=== PATIENT | male | born 1950 | race Caucasian/White ===

== ENCOUNTER → 2018-09-12 07:37 | Emergency (ER) | payer OTHER ==
[~2018-09-12 07:37] MED LIST: Furosemide IV* 10 MG/ML 10 ML VIAL (100 MG) IV ONE; Furosemide IV* 10 MG/ML VIAL (40 MG) IV ONE; LORazepam INJ* 2 MG/ML 1 ML VIAL IV PUSH ONE; Nitroglycerin TAB 0.4 MG* 0.4 MG TAB SL ONE
[2018-09-12 08:10] LABS: ABS Basophils 0 10^3/ul (0-0.2); ABS Eosinophils 0.2 10^3/ul (0-0.6); ABS Lymphocytes 1.7 10^3/ul (1.0-4.8); ABS Monocytes 0.6 10^3/ul (0-0.8); ABS Neutrophils 4.7 10^3/ul (1.5-7.7); ABS Nucleated RBC 0 10^3/ul; Eosinophil % 2.4 %; Hematocrit 49 % (42-52); Hemoglobin 16.4 g/dl (14.0-18.0); Lymphocyte % 23.3 %; Mean Corpuscular HGB Conc 34 g/dl (31-36); Mean Corpuscular Hemoglobin 30 pg (27-31); Mean Corpuscular Volume 88 fL (80-94); Nucleated Red Blood Cells % 0.1; Platelet Count 178 10^3/ul (150-450); Red Cell Distribution Width 15 % (10.5-15); White Blood Count 7.2 10^3/ul (3.5-10.8)
[2018-09-12 08:29] LABS: EGFR Non-African American 58.1 (>60)
--- NOTE | 2018-09-12 08:43 | ED ---
Shortness of Breath - HPI Summary HPI Summary: Patient is a 68yo M with a hx of bypass, CHF and anxiety presenting to the ED with anxiety over his recent SOB when lying flat. He is tearful on arrival and states he is concerned with sepsis. Currently does not take medications for anxiety because mother of "tranquilizer overdose." States he has not slept in 3 weeks d/t the anxiety over his SOB. PCP is the [facility]. Denies any dizziness, chest pain, chest pain with cough. Denies recent illness. Denies any fevers, sweats, chills. History of 2 bypass surgeries 2013 from [facility] in [facility]. PCP is Dr. Blas to the [facility]. He states he is allergic to several medications and currently is only taking pravastatin. Prior to 3 weeks ago, he states he has been feeling well. - History of Current Complaint Chief Complaint: EDGeneral Time Seen by Provider: 09/12/18 07:47 Hx Obtained From: Patient Onset/Duration: Sudden Onset Timing: Constant Current Severity: Severe Dyspnea At: Rest Aggrevating Factors: Recumbent Position, Other - lying flat Alleviating Factors: Upright Position Associated Signs & Symptoms: Negative - Risk Factors Cardiac: CHF - And 2 bypass surgeries. - Allergy/Home Medications Allergies/Adverse Reactions: Allergies Allergy/AdvReac Type Severity Reaction Status Date / Time amlodipine Allergy Unknown Verified 09/12/18 10:13 Reaction Details Beta-Blockers Allergy Unknown Verified 09/12/18 10:13 (Beta-Adrenergic Bloc Reaction Details codeine Allergy Nausea And Verified 09/12/18 10:13 Vomiting erythromycin base Allergy Unknown Verified 09/12/18 10:13 Reaction Details spironolactone Allergy Nausea And Verified 09/12/18 10:13 Vomiting Home Medications: Home Medications Aspirin TAB* [Aspirin 325 MG TAB*] 325 mg PO DAILY WITH MEAL 09/12/18 [History Confirmed 09/12/18] Pravastatin (NF) [Pravachol (NF)] 10 mg PO 1700 09/12/18 [History Confirmed ] PMH/Surg Hx/FS Hx/Imm Hx Previously Healthy: Yes Psychiatric History: Denies: Hx Eating Disorder, Hx of Violent Episodes Against Others - Surgical History Surgery Procedure, Year, and Place: mitral valve replacement - Immunization History Hx Pertussis Vaccination: No Immunizations Up to Date: Yes Infectious Disease History: No Infectious Disease History: Denies: Traveled Outside the [place] in Last 30 Days - Social History Occupation: Unemployed Lives: Alone Alcohol Use: None Hx Substance Use: Yes Substance Use Type: Reports: Marijuana Hx Tobacco Use: No Smoking Status (MU): Never Smoked Tobacco Review of Systems Negative: Fever, Chills, Fatigue, Skin Diaphoresis Negative: Palpitations, Chest Pain Positive: Shortness Of Breath - worse with lying flat. Negative: Cough Negative: Abdominal Pain, Vomiting, Diarrhea, Nausea Genitourinary: Negative Positive: no symptoms reported, see HPI Negative: Arthralgia, Myalgia Skin: Negative All Other Systems Reviewed And Are Negative: Yes Physical Exam Triage Information Reviewed: Yes Vital Signs On Initial Exam: Initial Vitals Temp Pulse Resp BP Pulse Ox 97.4 F 104 18 172/105 98 09/12/18 07:38 09/12/18 07:38 09/12/18 07:38 09/12/18 07:38 09/12/18 07:38 Vital Signs Reviewed: Yes Appearance: Positive: Well-Appearing, Well-Nourished Skin: Positive: Skin Color Reflects Adequate Perfusion Neck: Positive: Supple, No Lymphadenopathy Respiratory/Lung Sounds: Positive: Clear to Auscultation, Breath Sounds Present Cardiovascular: Positive: Normal, Pulses are Symmetrical in both Upper and Lower Extremities, Tachycardia. Negative: Leg Edema Left, Leg Edema Right Musculoskeletal: Positive: Strength/ROM Intact Neurological: Positive: Speech Normal Psychiatric: Positive: Normal, Affect/Mood Appropriate AVPU Assessment: Alert Diagnostics - Vital Signs Vital Signs Temp Pulse Resp BP Pulse Ox 09/12/18 08:36 18 09/12/18 07:38 97.4 F 104 18 172/105 98 - Laboratory Lab Results: Lab Results 09/12/18 09/12/18 09/12/18 Range/Units 08:01 08:01 08:01 WBC 7.2 (3.5-10.8) 10^3/ul RBC 5.50 H (4.00-5.40) 10^6/ul Hgb 16.4 (14.0-18.0) g/dl Hct 49 (42-52) % MCV 88 (80-94) fL MCH 30 (27-31) pg MCHC 34 (31-36) g/dl RDW 15 (10.5-15) % Plt Count 178 (150-450) 10^3/ul MPV 9.0 (7.4-10.4) fL Neut % (Auto) 65.7 % Lymph % (Auto) 23.3 % [place] % (Auto) 8.1 % Eos % (Auto) 2.4 % Baso % (Auto) 0.5 % Absolute Neuts (auto) 4.7 (1.5-7.7) 10^3/ul Absolute Lymphs (auto) 1.7 (1.0-4.8) 10^3/ul Absolute Monos (auto) 0.6 (0-0.8) 10^3/ul Absolute Eos (auto) 0.2 (0-0.6) 10^3/ul Absolute Basos (auto) 0 (0-0.2) 10^3/ul Absolute Nucleated RBC 0 10^3/ul Nucleated RBC % 0.1 Sodium 141 (135-145) mmol/L Potassium 4.1 (3.5-5.0) mmol/L Chloride 107 (101-111) mmol/L Carbon Dioxide 25 (22-32) mmol/L Anion Gap 9 (2-11) mmol/L BUN 26 H (6-24) mg/dL Creatinine 1.24 H (0.67-1.17) mg/dL Est GFR ( Amer) 70.4 (>60) Est GFR (Non-Af Amer) 58.1 (>60) BUN/Creatinine Ratio 21.0 H (8-20) Glucose 139 H (70-100) mg/dL Lactic Acid 1.4 (0.5-2.0) mmol/L Calcium 9.7 (8.6-10.3) mg/dL Total Bilirubin 4.20 H (0.2-1.0) mg/dL AST 22 (13-39) U/L ALT 24 (7-52) U/L Alkaline Phosphatase 101 (34-104) U/L CK-MB (CK-2) 3.6 (0.6-6.3) ng/mL C-Reactive Protein 1.88 (<8.01) mg/L Total Protein 6.9 (6.4-8.9) g/dL Albumin 4.7 (3.2-5.2) g/dL Globulin 2.2 (2-4) g/dL Albumin/Globulin Ratio 2.1 (1-3) Influenza A (Rapid) (Negative) Influenza B (Rapid) (Negative) 09/12/18 Range/Units 08:22 WBC (3.5-10.8) 10^3/ul RBC (4.00-5.40) 10^6/ul Hgb (14.0-18.0) g/dl Hct (42-52) % MCV (80-94) fL MCH (27-31) pg MCHC (31-36) g/dl RDW (10.5-15) % Plt Count (150-450) 10^3/ul MPV (7.4-10.4) fL Neut % (Auto) % Lymph % (Auto) % [place] % (Auto) % Eos % (Auto) % Baso % (Auto) % Absolute Neuts (auto) (1.5-7.7) 10^3/ul Absolute Lymphs (auto) (1.0-4.8) 10^3/ul Absolute Monos (auto) (0-0.8) 10^3/ul Absolute Eos (auto) (0-0.6) 10^3/ul Absolute Basos (auto) (0-0.2) 10^3/ul Absolute Nucleated RBC 10^3/ul Nucleated RBC % Sodium (135-145) mmol/L Potassium (3.5-5.0) mmol/L Chloride (101-111) mmol/L Carbon Dioxide (22-32) mmol/L Anion Gap (2-11) mmol/L BUN (6-24) mg/dL Creatinine (0.67-1.17) mg/dL Est GFR ( Amer) (>60) Est GFR (Non-Af Amer) (>60) BUN/Creatinine Ratio (8-20) Glucose (70-100) mg/dL Lactic Acid (0.5-2.0) mmol/L Calcium (8.6-10.3) mg/dL Total Bilirubin (0.2-1.0) mg/dL AST (13-39) U/L ALT (7-52) U/L Alkaline Phosphatase (34-104) U/L CK-MB (CK-2) (0.6-6.3) ng/mL C-Reactive Protein (<8.01) mg/L Total Protein (6.4-8.9) g/dL Albumin (3.2-5.2) g/dL Globulin (2-4) g/dL Albumin/Globulin Ratio (1-3) Influenza A (Rapid) Negative (Negative) Influenza B (Rapid) Negative (Negative) Result Diagrams: 09/12/18 08:01 09/12/18 08:01 Lab Statement: Any lab studies that have been ordered have been reviewed, and results considered in the medical decision making process. Course/Dx - Course Course Of Treatment: Patient is very tearful on exam. BP 172/105. O2 97%. he is unable to breathe when lying flat and or in a recumbent to flat position. He states he has a history of CHF, but takes no medications for this. 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 He also states lisinopril get some palpitations. For this reason he remains only on his pravastatin at this time. He is seen by Dr. Blas at the [place] [facility]. History of 2 bypass surgeries in 2012 in [facility]. BNP is 1026. Nitro .4mg sublingual given and 40mg lasix. Will continue to assess and admission is recommended. Discussed case with Dr. Dunne at 9:40 AM. - Diagnoses Differential Diagnosis/HQI/PQRI: Positive: CHF Provider Diagnoses: CHF exacerbation, Hypertension - Physician Notifications Discussed Care of Patient With: Rasheed Dunne - Will see patient in the ED Time Discussed With Above Provider: 09:40 Instructed by Provider To: Admit As Inpatient Discharge - Sign-Out/Discharge Documenting (check all that apply): Patient Departure - Discharge Plan Condition: Fair Disposition: ADMITTED TO [facility] Referrals: Roby Blas MD [Primary Care Provider] - - Billing Disposition and Condition Condition: FAIR Disposition: Admitted to [facility]
[2018-09-12 10:34] LABS: Urine Appearance Clear; Urine Blood Negative (Negative); Urine Color Yellow; Urine Ketones Negative (Negative); Urine Protein Negative (Negative); Urine Specific Gravity 1.006 (1.010-1.030); Urine Urobilinogen Negative (Negative)
[2018-09-12 12:47] VITALS: BP 146/82
--- NOTE | 2018-09-12 14:07 | ECHO ---
Patient: NELL BANDA [facility] Rec#: [id number] : 1950 Date: 09/12/2018 Age: 68y Height: 191 cm / 75.2 in Weight: 100 kg / 220.4 lbs Sex: M BSA: 2.29 Room#: [facility] Admit Date#: 09/12/2018 Type: Inpatient Referring: Rudi Dunne MD Reading: Keyur Roche MD Transfer Specialist: Yovana Ramos RDCS CC: Roby Blas MD Transthoracic Echocardiogram Indication: Congestive heart failure BP: 134/70 HR: 89 Rhythm: NSR with PVCs Findings History: S/P AVR Trifecta valve, s/p CABG, HTN, HLD. Technical Comments: The study quality is fair. Completed at 1220. Left Ventricle: The left ventricular chamber size is moderately dilated. Mild concentric left ventricular hypertrophy is observed. There is moderately decreased left ventricular systolic function. The estimated ejection fraction is 25-30%. Post surgical hypokinesis of the interventricular septum is observed consistent with coronary artery bypass. Abnormal left ventricular diastolic function is observed. The left ventricular diastolic filling pattern is restrictive. The basal anteroseptal, basal inferolateral, mid anteroseptal, mid anterior, apical septal, apical anterior, and apical inferior wall segments are hypokinetic (score 2). The basal inferior, basal inferoseptal, mid inferior, and mid inferoseptal wall segments are akinetic (score 3). Overall wallmotion score index is 1.94 Left Atrium: The left atrium is moderate to severely dilated. Right Ventricle: Moderator Band present. The right ventricle is mildly dilated. The right ventricular global systolic function is moderately reduced. Right Atrium: The right atrium is moderate to severely dilated. Aortic Valve: There is mild to moderate aortic regurgitation. There is mild aortic stenosis. The mean gradient of the aortic valve is 23 mmHg. The peak instantaneous gradient of the aortic valve is 38 mmHg. The aortic valve area, by peak velocities, is calculated at 1.5 cm2. The aortic valve area, by VTI's, is calculated at 1.4 cm2. The measured aortic regurgitation pressure half-time is 320 msec. A bio-prosthetic pericardial aortic valve is present. The prosthetic aortic valve leaflets are thickened. There is abnormal regurgitation of the bio-prosthetic aortic valve. The peak velocities and mean gradients are mildly elevated raising the possibility of prosthetic valve stenosis. Mitral Valve: There is mitral annular calcification. The mitral valve leaflets are mildly thickened. There is mild mitral regurgitation. There is no evidence of mitral stenosis. Tricuspid Valve: The tricuspid valve leaflets are normal. There is mild tricuspid regurgitation. The right ventricular systolic pressure is estimated at 37 mmHg. There is evidence of mild pulmonary hypertension. There is no tricuspid stenosis. Pulmonic Valve: The pulmonic valve appears normal. Pericardium: There is no significant pericardial effusion. A pericardial fat pad is visualized. Aorta: There is mild dilatation of the ascending aorta. There is no dilatation of the aortic arch. The aortic root is normal in size. Pulmonary Artery: The main pulmonary artery appears normal. Venous: The inferior vena cava is dilated. There is a greater than 50% respiratory change in the inferior vena cava dimension. Summary: There was not any prior study for comparison. Conclusions Mild concentric left ventricular hypertrophy is observed. There is moderately decreased left ventricular systolic function. The estimated ejection fraction is 25-30%. Post surgical hypokinesis of the interventricular septum is observed consistent with coronary artery The left ventricular diastolic filling pattern is restrictive. The right ventricle is mildly dilated. The right ventricular global systolic function is moderately reduced. The left atrium is moderate to severely dilated. The right atrium is moderate to severely dilated. There is mild to moderate aortic stenosis. There is mild to moderate aortic regurgitation. There is abnormal regurgitation of the bio-prosthetic aortic valve. The peak velocities and mean gradients are mildly elevated raising the possibility of prosthetic valve stenosis. There is mitral annular calcification. There is mild mitral regurgitation. There is mild tricuspid regurgitation. There is evidence of mild pulmonary hypertension. Measurements Name Value Normal Range RVIDd (AP) 2D 4.1 cm (0.9 - 2.6) RVDdMajor (2D) 4.9 cm (2.2 - 4.4) RAd ISD 4CH 6.2 cm (3.4 - 4.9) RA (A4C)W 4.7 cm (2.9 - 4.6) IVSd (2D) 1.1 cm (0.6 - 1) LVPWd (2D) 1.1 cm (0.6 - 1) LVIDd (2D) 6.1 cm (3.6 - 5.4) LVIDs (2D) 5.5 cm - LV FS (2D) 9 % (25 - 45) Aortic Annulus 2.3 cm (1.4 - 2.6) Ao root diameter (2D) 3.2 cm (2.1 - 3.5) Ascending Ao 3.9 cm (2.1 - 3.4) Aortic arch 2.6 cm (1.8 - 3.4) LA dimension (AP) 2D 4.9 cm (2.3 - 3.8) LAd ISD 4CH 6.9 cm (2.9 - 5.3) LA ISD 4CH W 4.9 cm (2.5 - 4.5) Name Value Normal Range LA ESV BP (A/L) index 44 ml/m2 - Name Value Normal Range MV E-wave Vmax 0.8 m/sec - MV deceleration time 222 msec - MV A-wave Vmax 0.4 m/sec - MV E:A ratio 2 ratio - LV septal e' Vmax 0.04 m/sec - LV lateral e' Vmax 0.1 m/sec - LV E:e' septal ratio 20 ratio - LV E:e' lateral ratio 8 ratio - Name Value Normal Range AV Vmax 3.1 m/sec - AV VTI 69 cm - AV peak gradient 38 mmHg - AV mean gradient 23 mmHg - LVOT diameter 2.2 cm - LVOT Vmax 1.2 m/sec - LVOT VTI 24.8 cm - LVOT peak gradient 5 mmHg - LVOT mean gradient 3 mmHg - DOI (VTI) 0.36 ratio - STEVENSON (continuity Vmax) 1.5 cm2 - STEVENSON (continuity VTI) 1.4 cm2 - AR PHT 320 msec - HEATHER Vmax 0.8 m/sec - Name Value Normal Range TR Vmax 2.7 m/sec - TR peak gradient 29 mmHg - RAP 8 mmHg - RVSP 37 mmHg - IVC diameter 2.3 cm - Name Value Normal Range PV Vmax 0.7 m/sec - PV peak gradient 2 mmHg - Wallmotion BAS Hypokinetic BA Normal BAL Normal JOHN Hypokinetic BI Akinetic BIS Akinetic MAS Hypokinetic MA Hypokinetic MAL Normal MIL Normal IA Akinetic MIS Akinetic Hypokinetic AA Hypokinetic AL Normal AI Hypokinetic APEX Hypokinetic
--- NOTE | 2018-09-12 23:01 | CONS ---
HOSPITAL MEDICINE CONSULTATION REPORT: DATE OF ADMISSION: 09/12/18 - EMERGENCY DEPT DATE OF CONSULT: 09/12/18 PROVIDER: Courtney Rutledge NP. ATTENDING PHYSICIAN: ANGELIA Hassan . CONSULTING PHYSICIAN: Dr. Rasheed Porter (dictated by Courtney Rutledge NP) REASON FOR CONSULTATION: Shortness of breath. HISTORY OF PRESENT ILLNESS: Mr. Gayle is a 68-year-old male with a past medical history significant for hyperlipidemia, glaucoma, coronary artery disease, and ocular migraines who presented to the emergency room with a 3-week history of shortness of breath. The patient reports that the shortness of breath is worse with lying down. He reports that prior to 3 weeks ago, he usually slept at night on 1 pillow and now he has been sleeping on 4 pillows for the past 3 weeks. It is unknown if he has had any weight gain. He denies any edema. He does report feeling very anxious over the past 3 weeks as well. He denies any fever, chills. Denies any chest pain or edema. He does report a dry cough. Denies any hemoptysis. He does report shortness of breath with lying down. Denies any nausea, vomiting. Does report loose stools. Denies any abdominal pain. Denies any hematuria or dysuria. Denies any focal weaknesses or sensory loss. Denies any visual complaints. Denies any dysphagia. He does report generalized muscle aches x3 weeks. Denies any rashes , lesions, psychosis or anxiety. PAST MEDICAL HISTORY: Significant for: 1. Hyperlipidemia. 2. Glaucoma. 3. Ocular migraines. 4. History of coronary artery disease with 2-vessel bypass. PAST SURGICAL HISTORY: 1. CABG with 2-vessel bypass. 2. Aortic valve replacement. 3. Tonsil and adenoidectomy. 4. Eye surgery. 5. Lipoma removal. HOME MEDICATIONS: Include: 1. Pravastatin 10 mg p.o. daily. 2. Aspirin 325 mg half a tablet p.o. daily. 3. Magnesium. 4. Vitamin A. 5. Vitamin D. 6. Vitamin B with C. 7. CoQ10. ALLERGIES: HYDROCHLOROTHIAZIDE causes hives, SPIRONOLACTONE, ERYTHROMYCIN, AMLODIPINE, BETA-BLOCKERS, and CODEINE. FAMILY HISTORY: No reported history of coronary artery disease, diabetes or cancer within the family. SOCIAL HISTORY: Denies any tobacco or alcohol. He does report marijuana use twice weekly. He is retired. He is single. He lives alone. Surrogate decision maker in the event he is unable to make his own decisions is his brother Johnathan Gayle. He is a full code. REVIEW OF SYSTEMS: There is no fevers, no chills, no unintended weight loss. Denies any chest pain or edema. He does report shortness of breath when lying down and dry cough x3 weeks. Denies any nausea or vomiting. Denies any abdominal pain. Does report loose stools x3 weeks. Denies any gross hematuria or dysuria. Denies any focal weakness or sensory loss. Denies any visual complaints. Denies any dysphagia. He does report generalized muscle aches x3 weeks. Denies any rashes or lesions. Does report increased anxiety x3 weeks. PHYSICAL EXAM: Vital Signs: Temperature was 98.4, heart rate 88, respirations 16, O2 saturation 97%, blood pressure 146/82. General: Mr. Gayle appears comfortable resting on the stretcher with his eyes closed. He is awake to verbal stimuli. He is in no acute distress. HEENT: Head is atraumatic, normocephalic. Eyes: EOMs are intact. Sclerae are anicteric and not pale. Oral mucosa appeared to be moist. Neck is supple. Lungs are clear to auscultation bilaterally. No wheezes, rales, or rhonchi. Slightly diminished in bilateral bases. Cardiac: S1, S2. Regular rate and rhythm. No murmurs, rubs, or gallops. Abdomen is soft and nontender. Bowel sounds are present x4. Extremities: No lower extremity edema. Skin is warm and dry. Pulses are +2 bilaterally radial. Neurologic: He is awake, alert and oriented x3. Speech is clear. Thought process is intact. No gross focal deficits. Skin is intact. LABORATORY DATA AND DIAGNOSTIC STUDIES: WBCs were 7.2, RBCs 5.50, hemoglobin 16.4, hematocrit of 49, platelet count was 178. Sodium 141, potassium 4.1, chloride 107, carbon dioxide was 25, anion gap was 9, BUN was 26, creatinine 1.24, which is baseline. Lactic acid was 1.42, bilirubin was 4.20. ASTs were 22, ALTs were 24, alkaline phosphatase was 101. CK-MB was 3.6. C-reactive protein 1.88, BNP was 1026. Urine color was yellow and clear. PH was 6.0 and specific gravity 1.006. The rest of his UA is within normal limits. Influenza A and B were negative. Chest x-ray: Radiologist impression: Mild cardiomegaly, no active cardiopulmonary disease. He had an electrocardiogram, which shows bigeminy. IMPRESSION AND PLAN: Mr. Gayle is a 68-year-old male with past medical history significant for coronary artery disease, hyperlipidemia, glaucoma, ocular migraines, who presented to the emergency room for complaints of increased shortness of breath x3 weeks. He was found to have an elevated BNP of 1026. He received Lasix 20 mg IV in the emergency room, diuresed 100 cc. The patient reports that he is feeling better after the diuresis and would like to go home. Our recommendations as follows: 1. Elevated brain natriuretic peptide. I suspect this is related to congestive heart failure. I would recommend placing the patient on Lasix 20 mg p.o. daily. He did have a transthoracic echocardiogram in the emergency room that is currently pending. I would also recommend a walking O2 saturation to evaluate whether the patient's O2 saturations decrease with ambulation and for patient's symptomatology. The patient should follow up with his primary care provider, Dr. Blas on Saturday at 9:30. The patient should have a repeat BNP on Saturday. 2. History of coronary artery disease. He should continue on pravastatin and aspirin as previously prescribed. 3. Code status: He is a full code. At this time, the patient could be discharged home with followup with Dr. Blas on Saturday. TIME SPENT: Time spent on this consultation was 45 minutes, more than half the time was spent with the patient at the bedside reviewing events leading thus far to his hospitalization, performing a physical exam, and reviewing my plan of care. I have discussed this with my attending, Dr. Rasheed Dunne; he is in agreement with my plan. COURTNEY RUTLEDGE, KADEEM [id number]/[facility] #: [id number] [facility] WESTCHESTERLexy
== END | disposition short-term general hospital (02) ==
LOC: ED 07:37
DX: I11.0 Hypertensive heart disease with heart failure (principal); I50.9 Heart failure, unspecified; R06.02 Shortness of breath; Z95.1 Presence of aortocoronary bypass graft; Z95.2 Presence of prosthetic heart valve; Z79.82 Long term (current) use of aspirin; Z88.1 Allergy status to other antibiotic agents; Z88.5 Allergy status to narcotic agent; Z88.8 Allergy status to other drugs, medicaments and biological substances
CPT/HCPCS: 36415; 71046; 80053; 81003; 82553; 83605; 83735; 83880; 85025; 86140; 93005; 93306; 96374; 96375; 99282; J1940; J2060

== ENCOUNTER 2018-10-03 16:53 | Inpatient (IN) | payer OTHER ==
[2018-10-03] MEDS ORDERED: Diltiazem IV* 5 MG/ML 5 ML VIAL (for loading dose/IV Push) (25 MG) IV SLOW PU ONE (17:30)
[2018-10-03] MEDS ORDERED: Diltiazem IV VIAL* 125 MG in NS 0.9% 100 ML* 100 ML IVPB ONE (17:30)
[2018-10-03] MEDS ORDERED: Apixaban* 5 MG TAB PO ONE (17:35)
[2018-10-03 18:01] LABS: ABS Basophils 0.1 10^3/ul (0-0.2); ABS Eosinophils 0.3 10^3/ul (0-0.6); ABS Lymphocytes 1.6 10^3/ul (1.0-4.8); ABS Monocytes 0.8 10^3/ul (0-0.8); ABS Neutrophils 5.8 10^3/ul (1.5-7.7); ABS Nucleated RBC 0 10^3/ul; Eosinophil % 3.5 %; Hematocrit 47 % (42-52); Hemoglobin 15.9 g/dl (14.0-18.0); Lymphocyte % 18.1 %; Mean Corpuscular HGB Conc 34 g/dl (31-36); Mean Corpuscular Hemoglobin 29 pg (27-31); Mean Corpuscular Volume 87 fL (80-94); Nucleated Red Blood Cells % 0; Platelet Count 151 10^3/ul (150-450); Red Blood Count 5.46 10^6/ul (4.00-5.40); Red Cell Distribution Width 15 % (10.5-15); White Blood Count 8.6 10^3/ul (3.5-10.8)
[2018-10-03 18:07] LABS: INR 1.2 (0.77-1.02)
[2018-10-03 18:18] LABS: Albumin 4.2 g/dL (3.2-5.2); Albumin/Globulin Ratio 2.1 (1-3); BUN/Creatinine Ratio 21.4 (8-20); Calcium 9.3 mg/dL (8.6-10.3); EGFR Non-African American 54.6 (>60); Potassium 4.2 mmol/L (3.5-5.0); Total Bilirubin 2.5 mg/dL (0.2-1.0); Total Protein 6.2 g/dL (6.4-8.9)
--- NOTE | 2018-10-03 18:38 | ED ---
Shortness of Breath - HPI Summary HPI Summary: 68-year-old male presents at the recommendation of his primary care provider for complaints of shortness of breath and orthopnea. Patient was seen at this facility on 09/12/2018 for similar complaints and was admitted with CHF. He was discharged on Lasix 20 mg daily. He reports that his breathing has improved some as well as his lower extremity edema since starting the Lasix. He has noted some chest discomfort and palpitations since his discharge. Also reports a dry nonproductive cough. Denies fever, chills, URI symptoms, abdominal pain, nausea, vomiting. He has a history of bypass surgery 2, CHF, hypertension, coronary artery disease, aortic stenosis with valve replacement, and anxiety with panic attacks. His primary care is Dr. Blas [facility] [place] [facility]. States he is currently not receiving any treatment for his anxiety benzodiazepines due to his mother overdosing on his medications. He was on amlodipine and beta blockers in the past and has taken himself off for fear of Peyronie's disease. - History of Current Complaint Chief Complaint: EDShortnessOfBreath Time Seen by Provider: 10/03/18 17:40 Hx Obtained From: Patient - Allergy/Home Medications Allergies/Adverse Reactions: Allergies Allergy/AdvReac Type Severity Reaction Status Date / Time amlodipine Allergy Unknown Verified 10/03/18 17:01 Reaction Details Beta-Blockers Allergy Unknown Verified 10/03/18 17:01 (Beta-Adrenergic Bloc Reaction Details codeine Allergy Nausea And Verified 10/03/18 17:01 Vomiting erythromycin base Allergy Unknown Verified 10/03/18 17:01 Reaction Details spironolactone Allergy Nausea And Verified 10/03/18 17:01 Vomiting PMH/Surg Hx/FS Hx/Imm Hx Endocrine/Hematology History: Denies: Hx Anticoagulant Therapy, Hx Blood Disorders, Hx Thyroid Disease, Hx Coagulopothy Cardiovascular History: Reports: Hx Cardiomegaly, Hx Coronary Artery Disease, Hx Hypertension, Hx Myocardial Infarction, Hx Valvular Heart Disease Denies: Hx Atrial Fibrillation, Hx Deep Vein Thrombosis Respiratory History: Reports: Hx Pulmonary Edema Sensory History: Reports: Hx Contacts or Glasses Psychiatric History: Reports: Hx Anxiety, Hx Panic Disorder Denies: Hx Eating Disorder, Hx of Violent Episodes Against Others - Surgical History Surgery Procedure, Year, and Place: mitral valve replacement Infectious Disease History: No Infectious Disease History: Denies: Traveled Outside the [place] in Last 30 Days - Social History Occupation: Unemployed Lives: Alone Alcohol Use: None Hx Substance Use: Yes Substance Use Type: Reports: Marijuana Hx Tobacco Use: No Smoking Status (MU): Never Smoked Tobacco Review of Systems Positive: Fatigue. Negative: Fever, Chills Negative: Sore Throat, Ear Ache, Nasal Discharge Positive: Palpitations, Chest Pain Positive: Shortness Of Breath, Cough Positive: Diarrhea. Negative: Abdominal Pain, Vomiting, Nausea Positive: no symptoms reported Musculoskeletal: Negative Skin: Negative Neurological: Other - Insomnia Positive: Anxious - Tearful at times All Other Systems Reviewed And Are Negative: Yes Physical Exam - Summary Physical Exam Summary: GENERAL APPEARANCE: Well developed, well nourished, alert and cooperative adult male who appears very anxious and is tearful at times but does not appear to be in acute distress. EYES: PERRL, EOM intact. Vision is grossly intact. EARS: External auditory canals and tympanic membranes clear, hearing grossly intact. NOSE: No nasal discharge. THROAT: Oral cavity and pharynx normal. No inflammation, swelling, exudate, or lesions. Teeth and gingiva in good general condition. NECK: Neck supple, non-tender without lymphadenopathy. CARDIAC: Normal S1 and S2. No S3, S4 or murmurs. Irregularly irregular. There is no peripheral edema, cyanosis or pallor. Extremities are warm and well perfused. Capillary refill is less than 2 seconds. Peripheral pulses intact. LUNGS: Crackles RLL otherwise bilateral breath sounds clear. ABDOMEN: Positive bowel sounds. Soft, nondistended, nontender. No guarding or rebound. No masses or hepatosplenomegally. MUSKULOSKELETAL: ROM intact to all extremities. No joint erythema or tenderness. Normal muscular development. Normal gait. NEUROLOGICAL: Strength and sensation symmetric and intact throughout. SKIN: Skin normal color, texture and turgor with no lesions or eruptions. Triage Information Reviewed: Yes Vital Signs On Initial Exam: Initial Vitals Temp Pulse Resp BP Pulse Ox 97.4 F 74 17 141/75 99 10/03/18 16:58 10/03/18 16:58 10/03/18 16:58 10/03/18 16:58 10/03/18 16:58 Vital Signs Reviewed: Yes Diagnostics - Vital Signs Vital Signs Temp Pulse Resp BP Pulse Ox 10/03/18 16:58 97.4 F 74 17 141/75 99 - Laboratory Lab Results: Lab Results 10/03/18 10/03/18 10/03/18 Range/Units 17:04 17:04 17:04 WBC 8.6 (3.5-10.8) 10^3/ul RBC 5.46 H (4.00-5.40) 10^6/ul Hgb 15.9 (14.0-18.0) g/dl Hct 47 (42-52) % MCV 87 (80-94) fL MCH 29 (27-31) pg MCHC 34 (31-36) g/dl RDW 15 (10.5-15) % Plt Count 151 (150-450) 10^3/ul MPV 9.0 (7.4-10.4) fL Neut % (Auto) 68.0 % Lymph % (Auto) 18.1 % Thayer % (Auto) 9.4 % Eos % (Auto) 3.5 % Baso % (Auto) 1.0 % Absolute Neuts (auto) 5.8 (1.5-7.7) 10^3/ul Absolute Lymphs (auto) 1.6 (1.0-4.8) 10^3/ul Absolute Monos (auto) 0.8 (0-0.8) 10^3/ul Absolute Eos (auto) 0.3 (0-0.6) 10^3/ul Absolute Basos (auto) 0.1 (0-0.2) 10^3/ul Absolute Nucleated RBC 0 10^3/ul Nucleated RBC % 0 INR (Anticoag Therapy) 1.20 H (0.77-1.02) Sodium 137 (135-145) mmol/L Potassium 4.2 (3.5-5.0) mmol/L Chloride 108 (101-111) mmol/L Carbon Dioxide 19 L (22-32) mmol/L Anion Gap 10 (2-11) mmol/L BUN 28 H (6-24) mg/dL Creatinine 1.31 H (0.67-1.17) mg/dL Est GFR ( Amer) 66.0 (>60) Est GFR (Non-Af Amer) 54.6 (>60) BUN/Creatinine Ratio 21.4 H (8-20) Glucose 140 H (70-100) mg/dL Lactic Acid (0.5-2.0) mmol/L Calcium 9.3 (8.6-10.3) mg/dL Total Bilirubin 2.50 H (0.2-1.0) mg/dL AST 28 (13-39) U/L ALT 26 (7-52) U/L Alkaline Phosphatase 127 H (34-104) U/L Troponin I 0.02 (<0.04) ng/mL B-Natriuretic Peptide (<=100) pg/mL Total Protein 6.2 L (6.4-8.9) g/dL Albumin 4.2 (3.2-5.2) g/dL Globulin 2.0 (2-4) g/dL Albumin/Globulin Ratio 2.1 (1-3) TSH Pending 10/03/18 10/03/18 Range/Units 17:04 17:04 WBC (3.5-10.8) 10^3/ul RBC (4.00-5.40) 10^6/ul Hgb (14.0-18.0) g/dl Hct (42-52) % MCV (80-94) fL MCH (27-31) pg MCHC (31-36) g/dl RDW (10.5-15) % Plt Count (150-450) 10^3/ul MPV (7.4-10.4) fL Neut % (Auto) % Lymph % (Auto) % Thayer % (Auto) % Eos % (Auto) % Baso % (Auto) % Absolute Neuts (auto) (1.5-7.7) 10^3/ul Absolute Lymphs (auto) (1.0-4.8) 10^3/ul Absolute Monos (auto) (0-0.8) 10^3/ul Absolute Eos (auto) (0-0.6) 10^3/ul Absolute Basos (auto) (0-0.2) 10^3/ul Absolute Nucleated RBC 10^3/ul Nucleated RBC % INR (Anticoag Therapy) (0.77-1.02) Sodium (135-145) mmol/L Potassium (3.5-5.0) mmol/L Chloride (101-111) mmol/L Carbon Dioxide (22-32) mmol/L Anion Gap (2-11) mmol/L BUN (6-24) mg/dL Creatinine (0.67-1.17) mg/dL Est GFR ( Amer) (>60) Est GFR (Non-Af Amer) (>60) BUN/Creatinine Ratio (8-20) Glucose (70-100) mg/dL Lactic Acid 0.9 (0.5-2.0) mmol/L Calcium (8.6-10.3) mg/dL Total Bilirubin (0.2-1.0) mg/dL AST (13-39) U/L ALT (7-52) U/L Alkaline Phosphatase (34-104) U/L Troponin I (<0.04) ng/mL B-Natriuretic Peptide 1312 H (<=100) pg/mL Total Protein (6.4-8.9) g/dL Albumin (3.2-5.2) g/dL Globulin (2-4) g/dL Albumin/Globulin Ratio (1-3) TSH Result Diagrams: 10/03/18 17:04 10/03/18 17:04 Lab Statement: Any lab studies that have been ordered have been reviewed, and results considered in the medical decision making process. - Radiology No standard instances Radiology Interpretation Completed By: Radiologist Summary of Radiographic Findings: Patient Name: NELL BANDA Medical Record#: [id number]. Ordering Physician: Adolfo Carias MD Acct.#: [id number]. : Age: 68 Sex: M Location: EMERGENCY DEPARTMENT. Exam Date: 10/03/18 1714 ADM Status: REG ER. Order Information: CHEST PA LAT 2 VWS. Accession Number: [id number]. CPT: 04160. Indication: CHF. 2 views of the chest including dual energy PA views demonstrates cardiomegaly. Prominent. interstitial markings are noted with right basilar atelectasis. Mild vascular congestion. is noted. These findings are new since prior exam of September 12, 2018. IMPRESSION: Cardiomegaly with vascular congestion. Re-Evaluation - Re-Evaluation First Eval Re-Evaluation Time: 19:45 Change: Improved Comment: Patient resting quietly in bed. States he is feeling a little better since starting the cardizem. Reviewed labs and other diagnositic testing with the patient. Plan is to admit for new onset a-fib, CHF. Verbalizes understanding. Course/Dx - Course Course Of Treatment: 68-year-old male presents at the recommendation of his primary care provider for complaints of shortness of breath and orthopnea. Patient was seen at this facility on 09/12/2018 for similar complaints and was admitted with CHF. He was discharged on Lasix 20 mg daily. He reports that his breathing has improved some as well as his lower extremity edema since starting the Lasix. He has noted some chest discomfort and palpitations since his discharge. Also reports a dry nonproductive cough. Denies fever, chills, URI symptoms, abdominal pain, nausea, vomiting. He has a history of bypass surgery 2, CHF, hypertension, coronary artery disease, aortic stenosis with valve replacement, and anxiety with panic attacks. His primary care is Dr. Blas at the [place] [facility]. States he is currently not receiving any treatment for his anxiety benzodiazepines due to his mother overdosing on his medications. He was on amlodipine and beta blockers in the past and has taken himself off for fear of Peyronie's disease. Exam reveals an anxious and occasionally tearful adult male who appears to be in no acute distress. Afebrile. Mildly hypertensive and tachycardic otherwise vital signs stable. He is noted to have an irregularly irregular heart rhythm without murmur or extra sounds. He has some crackles in the right lower lobe. No peripheral edema was present. Exam is otherwise unremarkable. Twelve-lead EKG showed a new onset of atrial fibrillation with a left bundle branch block. Chest x-ray shows cardiomyopathy with some vascular congestion and right basilar atelectasis. Labs are significant for BUN 28, creatinine 1.31, with an estimated GFR of 54.6, serum glucose 140, total bilirubin 2.5, alkaline phosphatase 127, BNP 1312, and a negative troponin. He received Ahlquist 5 mg by mouth, diltiazem 15 mg bolus followed by a 5 mg an hour drip. His heart rate decreased into the 90s. Case was discussed with sandra Mariscal. Patient is to be admitted to the hospital. All diagnostic studies were reviewed with the patient and he is agreeable to the current disposition plan. - Diagnoses Provider Diagnoses: New onset atrial fibrillation, Congestive heart failure (CHF) - Physician Notifications Discussed Care of Patient With: Earle Dennis Time Discussed With Above Provider: 20:05 Instructed by Provider To: Admit As Inpatient Discharge - Sign-Out/Discharge Documenting (check all that apply): Patient Departure - Discharge Plan Condition: Guarded Disposition: ADMITTED TO [facility] Referrals: Roby Blas MD [Primary Care Provider] - - Billing Disposition and Condition Condition: GUARDED Disposition: Admitted to [facility]
[2018-10-03 18:54] LABS: TSH (Thyroid Stimulating Horm) 1.62 mcIU/mL (0.34-5.60)
[2018-10-03] MEDS ORDERED: NS 0.9% 100 ML* 100 ML ONE (19:29)
[2018-10-03] MEDS: Furosemide IV* 10 MG/ML 2 ML VIAL (20 MG) IV SCH (23:52)
[2018-10-04] MEDS ORDERED: Melatonin 3 MG TAB PO PRN (00:34)
[2018-10-04] MEDS: Heparin VIAL(*) 5000 UNITS/ML VIAL (FIVE THOUSAND) SUBCUT SCH ×3 (05:35→21:45)
--- NOTE | 2018-10-04 06:23 | HP ---
CC: Dr. Roby Blas at [place] * HISTORY AND PHYSICAL: DATE OF ADMISSION: 10/03/18 PRIMARY CARE PROVIDER: Dr. Roby Blas. ATTENDING PHYSICIAN: Dr. Earle Dennis * (dictated by Conner Reid NP). CHIEF COMPLAINT: Not sleeping well for 3 weeks, difficulty ambulating due to shortness of breath, intermittent palpitations. HISTORY OF PRESENT ILLNESS: Mr. Gayle is a 68-year-old male with past medical history significant for anxiety, congestive heart failure, TIA, fatty liver, CAD, diverticulitis, IBS, gout, hypertension, who presented initially 3 weeks ago to the emergency room for complaints of shortness of breath, it was worse with lying down. Prior to that, he had had 3 weeks of not feeling well and was treated for bronchitis. He does not weigh himself so he is unsure if he has gained any weight. At his last visit to the ER on 09/12/18, he was reporting needing to sleep with 4 pillows instead of his usual 1. He denied any edema. He had been feeling very anxious over the last 3 weeks. Denied chest pain, edema. At that time, he was found to have an elevated BNP. He had an echo while in the emergency room showing decreased left ventricular systolic function and EF of 25% to 30%. He was placed on 20 mg of Lasix, discharged home with recommendations to follow up his primary care provider the following Saturday and have a repeat BNP. The patient reports that he has not been sleeping well for the last 3 weeks, forcing himself to sleep 1 to 3 hours at night, needing to sleep in a chair, sitting almost completely upright to be able to breathe well. Previously for the last 14 years, he walked everywhere, carried many groceries home, he has not had a car. He says he is unable to do this. He can only ambulate approximately 40 feet before he is so short of breath that he needs to stop to "gasp for breath" before he is able to walk further. He denies fevers, chills, chest pain. He reports an occasional cough. He is denying shortness of breath at rest. He occasionally has diarrhea due to his IBS, diverticulitis. Currently, denies abdominal pain. Denies dysuria. Reports having a history of an irregular heartbeat and palpitations. He feels as though he has had lower extremity edema that has improved since starting his Lasix. He reports poor dentition and concern for sepsis and he rinses his mouth daily with special mouth rinse. He is hoping to get into a dentist to have all of his teeth extracted. He called his primary care provider today with his complaints of shortness of breath and orthopnea. His primary care provider recommended that he present to the emergency room for further evaluation. While in the emergency room, he had labs showing a BNP of 1312, troponin 0.02, creatinine of 1.31, just slightly above what appears to be his baseline. He was not hypoxic. He was not requiring supplemental oxygen. He was initially noted to be tachycardic. He had an EKG that the machine read as AFib, but there are P waves and I suspect there was bursts of SVT, we were unable to see the P waves. He received a IV bolus of Cardizem and was placed on a Cardizem drip at 10 mL an hour. His heart rate slowed down into the 80s. A repeat EKG was obtained showing a sinus rhythm. He did receive a dose of Eliquis. He had a chest x-ray showing cardiomegaly with vascular congestion. Elevated total bilirubin and alk phos. Hospitalists were asked to evaluate the patient for admission. PAST MEDICAL HISTORY: 1. Hyperlipidemia. 2. Glaucoma. 3. Ocular migraines. 4. Coronary artery disease. PAST SURGICAL HISTORY: 1. Status post CABG with two-vessel bypass. 2. Status post aortic valve replacement, with tissue. He is unsure if it is Bovine or Porcine. 3. Status post tonsillectomy and adenoidectomy. 4. Status post eye surgery. 5. Status post lipoma removal. HOME MEDICATIONS: Include: 1. Pravastatin 10 mg oral daily. 2. Lasix 20 mg oral daily. 3. Aspirin 325 mg oral daily. 4. Magnesium 263 mg oral daily. 5. Ranitidine 150 mg oral every evening as needed for indigestion. ALLERGIES: AMLODIPINE, BETA BLOCKERS, SPIRONOLACTONE, CODEINE, ERYTHROMYCIN. FAMILY HISTORY: The patient's father had history of coronary artery disease when he was older. He denies family history of diabetes. He reports a grandmother with a history of uterine cancer and a cousin with a history of breast cancer. SOCIAL HISTORY: He denies tobacco or alcohol use. He smokes marijuana 2 to 3 times weekly. He would like his cousin, Kenya Vance, to be his surrogate decision maker in the event he is unable to make decisions for himself. REVIEW OF SYSTEMS: I performed an 11-point review of systems. All the pertinent positives and negatives are mentioned in the history of present illness. The remaining review of systems are negative. He does report some generalized aches for several weeks now and as previously mentioned increased anxiety. PHYSICAL EXAMINATION GENERAL APPEARANCE: The patient is alert, pleasant, appears to be in no acute distress. VITAL SIGNS: Temperature 97.4, heart rate 112, respiratory rate 24, O2 sat 97% on room air, blood pressure 127/104. HEENT: Normocephalic, atraumatic. Pupils are equal and reactive to light. Extraocular movements are intact. NECK: He has slight JVD noted, more prominent on the left than the right. RESPIRATORY: There is no accessory muscle use. The lungs are clear to auscultation bilaterally. CARDIOVASCULAR: Regular rate and rhythm. S1, S2 present. There are no murmurs , rubs, or gallops heard. ABDOMEN: Soft, nontender, and nondistended. Bowel sounds are present x4. EXTREMITIES: No lower extremity edema. DP and PT pulses are 2+ and symmetric. MUSCULOSKELETAL: There is no clubbing or cyanosis noted. The patient exhibits good strength in all extremities. NEUROLOGICAL: The patient is alert and oriented x4. Cranial nerves II through XII are grossly intact. PSYCHOLOGICAL: The patient is calm and cooperative but anxious. SKIN: There are no rashes or abnormalities. DIAGNOSTIC STUDIES/LABORATORY DATA: Sodium 137, potassium 4.2, chloride 108, CO2 of 19, BUN 28, creatinine 1.31, glucose 140. White blood cell count 8.6, hemoglobin 15.9, hematocrit 47, platelet count 151. Alk phos 127. Total bilirubin 2.50. INR 1.20. BNP 1312. Troponin 0.02. First EKG at 1714 shows what appears to be a sinus rhythm with possible bursts of SVT, a rate of 128, left bundle-branch block. When compared to previous EKG from 09/12/18, this is similar. The repeat EKG at 2099 is showing sinus rhythm , rate of 80. Chest x-ray from today; radiologist impression: Cardiomegaly with vascular congestion. IMPRESSION: Mr. Gayle is a 68-year-old male with past medical history significant for anxiety, congestive heart failure, transient ischemic attack, fatty liver, coronary artery disease, diverticulitis, gout, irritable bowel syndrome, and hypertension, who presents to the emergency room with complaints of orthopnea and shortness of breath and not sleeping. He will be admitted as observation for congestive heart failure exacerbation. ASSESSMENT/PLAN: 1. Acute on chronic systolic congestive heart failure exacerbation. I suspect the patient's symptoms represent a mild congestive heart failure exacerbation. He has no lower extremity edema, no crackles, but he is endorsing increased shortness of breath and orthopnea. He is currently on 20 mg of Lasix p.o. daily. I am going to give him 20 mg of IV Lasix tonight and see how he does with that. We will get daily weights, strict Is and Os. I am going to hold on an echo as he just had an echo on 09/12/18 showing a decreased systolic function of 25% to 30%. He has some mild JVD noted. Based off of his course, we may consider a cardiology consult if needed. He is not currently hypoxic requiring oxygen. His BNP is 1312, which is slightly higher than his last admission. He has signs of vascular congestion on chest x-ray. 2. Irregular heart rate. The patient was noted to have a period of a slightly irregular heart rate that was tachycardic. I feel this was likely a sinus rhythm as I can see P waves in EKG with an SVT, which the P waves were buried in and not an atrial fibrillation. I am going to stop the diltiazem drip and Eliquis that he was started on in the ER and I am going to monitor him on telemetry. Of course, if he does develop what appears to be atrial fibrillation , we will reconsider anticoagulation and placing him on a rate control agent. He does have a history of palpitations and may benefit from a loop recorder or longer monitoring if no events are found while he is in the hospital. His troponin was 0.02. 3. Elevated creatinine. His creatinine is slightly elevated above his baseline. I suspect this could be secondary to fluid overload. Again, I am going to increase his diuretics. We will recheck his creatinine in the morning. He appears to have chronic kidney disease stage 3 at baseline. 4. History of transient ischemic attack. He will be continued on aspirin. 5. Fatty liver. His LFTs are elevated but near his baseline. 6. Coronary artery disease. He denies chest pain. He will be continued on aspirin and statin. He is not currently on a beta jaspal, he reports, due to reaction. 7. Diverticulosis and low suspicion for diverticulitis. At this time, he has no white count, no fever, no acute abdominal pain. 8. Hypertension. He has been slightly hypertensive while in the emergency room. He has recently been taken off all his blood pressure medications. I am going to continue Lasix. He states he has taken himself off his amlodipine and beta jaspal due to fear of Peyronie's disease. 9. Anxiety. The patient has severe anxiety but is not on medications. He has lots of nonpharmacological ways that he uses to assist with his anxiety. He states he does not take benzodiazepine due to his mother overdosing on the medication. We will continue supportive care and see if maybe we can convince him to try some medication. 10. Insomnia. We will try melatonin to see if this helps. 11. Poor dentition. I recommend the patient be assisted in the outpatient setting with getting set up with a dentist to remove his broken teeth. 12. Fluids, electrolytes and nutrition. He is going to be on a low-sodium diet. 13. Code status. Full code. 14. DVT prophylaxis. He is at high risk and will have subcu heparin. 15. Disposition. Observation. TIME SPENT: Time for this admission was approximately 60 minutes, greater than half of that was spent with the patient discussing medications, past medical history, the events leading up to his arrival today, and performing physical examination. The case has been reviewed with the attending, Dr. Dennis, who agrees with the plan of care. CONNER ERID, KADEEM [id number]/[facility] #: [id number] EMILY
[2018-10-04] MEDS: Famotidine TAB* 20 MG PO SCH ×2 (09:06→21:43)
[2018-10-04] MEDS: Aspirin TAB* 325 MG PO SCH (09:06)
[2018-10-04] MEDS: Furosemide IV* 10 MG/ML 2 ML VIAL (20 MG) IV SCH (09:06)
[2018-10-04] MEDS ORDERED: Pravastatin (NF) 10 MG TAB PO SCH (17:00)
--- NOTE | 2018-10-04 17:34 | PN ---
Subjective Date of Service: 10/04/18 Interval History: Pt seen and examined. Meds and labs reviewed. CC: Orthopnea ROS: Denied NESS/dizziness, F/C, N/V, CP, increased cough, sputum production, abd pain, diarrhea, constipation, dysuria, myalgias, arthralgias, throat pain, and new skin lesions. The rest of the 14 point ROS are unremarkable. PHYSICAL EXAM: GEN APPEARANCE: Awake, not in acute distress HEENT: NC/AT, PERRLA, moist oral mucosa, (-) throat erythema NECK: Soft, supple, (-) cervical LAD, (+)JVD HEART: S1S2 WNL, RRR, No MRG CHEST: CTA, BL, GAE, No W/R/R ABD: Soft, ND/NT, NABS 4x Q EXT: No C/C/E SKIN: Warm to touch PSYCH: No active psychosis, hallucinations, depression, SI/HI Objective Active Medications: Aspirin (Aspirin Tab*) 325 mg PO DAILY WITH MEAL [facility] Last Admin: 10/04/18 09:06 Dose: 325 mg Aspirin (Aspirin 81 Mg Chew Tab*) 81 mg PO DAILY [facility] Famotidine (Pepcid Tab*) 20 mg PO BID [facility] Last Admin: 10/04/18 09:06 Dose: 20 mg Furosemide (Lasix Iv*) 40 mg IV BID [facility] Heparin Sodium (Porcine) (Heparin Vial(*)) 5,000 units SUBCUT Q8HR [facility] Last Admin: 10/04/18 15:04 Dose: 5,000 units Melatonin (Melatonin) 3 mg PO BEDTIME PRN PRN Reason: INSOMNIA Metolazone (Zaroxolyn Tab*) 5 mg PO DAILY [facility] Stop: 10/08/18 17:59 Pravastatin Sodium (Pravachol (Nf)) 10 mg PO 1700 [facility] Vital Signs - 8 hr 10/04/18 10/04/18 11:53 15:30 Temperature 98.5 F 97.9 F Pulse Rate 60 92 Respiratory 16 16 Rate Blood Pressure 141/80 140/76 (mmHg) O2 Sat by Pulse 98 99 Oximetry Oxygen Devices in Use Now: None Result Diagrams: 10/03/18 17:04 10/03/18 17:04 Additional Lab and Data: Lab Results 10/03/18 10/03/18 10/03/18 Range/Units 17:04 17:04 17:04 WBC 8.6 (3.5-10.8) 10^3/ul RBC 5.46 H (4.00-5.40) 10^6/ul Hgb 15.9 (14.0-18.0) g/dl Hct 47 (42-52) % MCV 87 (80-94) fL MCH 29 (27-31) pg MCHC 34 (31-36) g/dl RDW 15 (10.5-15) % Plt Count 151 (150-450) 10^3/ul MPV 9.0 (7.4-10.4) fL Neut % (Auto) 68.0 % Lymph % (Auto) 18.1 % [place] % (Auto) 9.4 % Eos % (Auto) 3.5 % Baso % (Auto) 1.0 % Absolute Neuts (auto) 5.8 (1.5-7.7) 10^3/ul Absolute Lymphs (auto) 1.6 (1.0-4.8) 10^3/ul Absolute Monos (auto) 0.8 (0-0.8) 10^3/ul Absolute Eos (auto) 0.3 (0-0.6) 10^3/ul Absolute Basos (auto) 0.1 (0-0.2) 10^3/ul Absolute Nucleated RBC 0 10^3/ul Nucleated RBC % 0 INR (Anticoag Therapy) 1.20 H (0.77-1.02) Sodium 137 (135-145) mmol/L Potassium 4.2 (3.5-5.0) mmol/L Chloride 108 (101-111) mmol/L Carbon Dioxide 19 L (22-32) mmol/L Anion Gap 10 (2-11) mmol/L BUN 28 H (6-24) mg/dL Creatinine 1.31 H (0.67-1.17) mg/dL Est GFR ( Amer) 66.0 (>60) Est GFR (Non-Af Amer) 54.6 (>60) BUN/Creatinine Ratio 21.4 H (8-20) Glucose 140 H (70-100) mg/dL Lactic Acid (0.5-2.0) mmol/L Calcium 9.3 (8.6-10.3) mg/dL Total Bilirubin 2.50 H (0.2-1.0) mg/dL AST 28 (13-39) U/L ALT 26 (7-52) U/L Alkaline Phosphatase 127 H (34-104) U/L Troponin I 0.02 (<0.04) ng/mL B-Natriuretic Peptide (<=100) pg/mL Total Protein 6.2 L (6.4-8.9) g/dL Albumin 4.2 (3.2-5.2) g/dL Globulin 2.0 (2-4) g/dL Albumin/Globulin Ratio 2.1 (1-3) TSH Pending 10/03/18 10/03/18 Range/Units 17:04 17:04 WBC (3.5-10.8) 10^3/ul RBC (4.00-5.40) 10^6/ul Hgb (14.0-18.0) g/dl Hct (42-52) % MCV (80-94) fL MCH (27-31) pg MCHC (31-36) g/dl RDW (10.5-15) % Plt Count (150-450) 10^3/ul MPV (7.4-10.4) fL Neut % (Auto) % Lymph % (Auto) % [place] % (Auto) % Eos % (Auto) % Baso % (Auto) % Absolute Neuts (auto) (1.5-7.7) 10^3/ul Absolute Lymphs (auto) (1.0-4.8) 10^3/ul Absolute Monos (auto) (0-0.8) 10^3/ul Absolute Eos (auto) (0-0.6) 10^3/ul Absolute Basos (auto) (0-0.2) 10^3/ul Absolute Nucleated RBC 10^3/ul Nucleated RBC % INR (Anticoag Therapy) (0.77-1.02) Sodium (135-145) mmol/L Potassium (3.5-5.0) mmol/L Chloride (101-111) mmol/L Carbon Dioxide (22-32) mmol/L Anion Gap (2-11) mmol/L BUN (6-24) mg/dL Creatinine (0.67-1.17) mg/dL Est GFR ( Amer) (>60) Est GFR (Non-Af Amer) (>60) BUN/Creatinine Ratio (8-20) Glucose (70-100) mg/dL Lactic Acid 0.9 (0.5-2.0) mmol/L Calcium (8.6-10.3) mg/dL Total Bilirubin (0.2-1.0) mg/dL AST (13-39) U/L ALT (7-52) U/L Alkaline Phosphatase (34-104) U/L Troponin I (<0.04) ng/mL B-Natriuretic Peptide 1312 H (<=100) pg/mL Total Protein (6.4-8.9) g/dL Albumin (3.2-5.2) g/dL Globulin (2-4) g/dL Albumin/Globulin Ratio (1-3) TSH Assess/Plan/Problems-Billing Assessment: - Patient Problems (1) CHF exacerbation Current Visit: Yes Status: Acute Code(s): I50.9 - HEART FAILURE, UNSPECIFIED SNOMED Code(s): 31320600 Comment: -Diastolic -Per 2D echo (09/12/18): EF =25-30%; restrictive diastolic filling pattern -Defer w/Sexual Assault Counselor at [place] to determine if pt candidate for PM given low EF -Will increase Lasix to 40 mg IV BID -Will add low dose Metolazone for synergy -Continue Low sodium diet -Repeat BNP in AM (2) Trigeminy Current Visit: Yes Status: Acute Code(s): R00.8 - OTHER ABNORMALITIES OF HEART BEAT SNOMED Code(s): 60728518 Comment: #PACs w/abberancy vs. Trigeminy: -Pt mentions he is being followed by cardiology [place] and was recently assessed -Mentions he has known regular irregularity of heart rhythm -At this time, we will continue to observe given pt is otherwise hemodynamically stable without any complaints of CP and had similar trigemini pattern back in August -Will D/C Eliquis at this time given rhythm is neither A. flutter nor A. fib (3) CKD (chronic kidney disease) Current Visit: Yes Status: Acute Code(s): N18.9 - CHRONIC KIDNEY DISEASE, UNSPECIFIED SNOMED Code(s): 852933616 Comment: -Possibly with mild acute insufficiency due to CHF exacerbation given only mildly elevated in comparison to recent baseline -Continue watchful waiting (4) CAD (coronary artery disease) Current Visit: Yes Status: Acute Code(s): I25.10 - ATHSCL HEART DISEASE OF [place] CORONARY ARTERY W/O ANG PCTRS SNOMED Code(s): 68105435 Comment: #CAD S/P CABG: -Continue ASA and statin -Pt not on beta jaspal given allergic to them; unclear why pt not on ACEI given low EF -Will hold off on ACEI given recent increase in diuretic regimen -Consider starting ACEI if no contraindication prior to D/C (5) DVT prophylaxis Current Visit: Yes Status: Acute Code(s): MPW1591 - SNOMED Code(s): 996019963 Comment: -Continue Heparin SQq8H Status and Disposition: -For PT eval
[2018-10-04] MEDS: Metolazone TAB* 5 MG PO SCH (18:32)
[2018-10-04] MEDS: PRAVASTATIN 40 MG PO SCH (18:32)
[2018-10-04] MEDS: Aspirin 81 mg CHEW TAB* 81 MG TAB.CHEW PO SCH (18:32)
[2018-10-04] MEDS: Zolpidem TAB* 10 MG PO PRN (21:43)
[2018-10-04] MEDS: Furosemide IV* 10 MG/ML VIAL (40 MG) IV SCH (21:46)
[2018-10-05] MEDS: Heparin VIAL(*) 5000 UNITS/ML VIAL (FIVE THOUSAND) SUBCUT SCH ×3 (05:18→21:37)
[2018-10-05 06:03] LABS: Hematocrit 48 % (42-52); Hemoglobin 16.2 g/dl (14.0-18.0); Mean Corpuscular HGB Conc 34 g/dl (31-36); Mean Corpuscular Hemoglobin 29 pg (27-31); Mean Corpuscular Volume 87 fL (80-94); Mean Platelet Volume 9.1 fL (7.4-10.4); Platelet Count 175 10^3/ul (150-450); Red Blood Count 5.55 10^6/ul (4.00-5.40); Red Cell Distribution Width 16 % (10.5-15); White Blood Count 8.9 10^3/ul (3.5-10.8)
[2018-10-05 06:25] LABS: Albumin 4.1 g/dL (3.2-5.2); Albumin/Globulin Ratio 1.6 (1-3); Calcium 9.6 mg/dL (8.6-10.3); Globulin 2.6 g/dL (2-4); Magnesium 1.8 mg/dL (1.9-2.7); Phosphorus 4.5 mg/dL (2.5-5.0); Potassium 3.6 mmol/L (3.5-5.0); Total Bilirubin 3.6 mg/dL (0.2-1.0); Total Protein 6.7 g/dL (6.4-8.9)
[2018-10-05] MEDS: Aspirin TAB* 325 MG PO SCH (08:34)
[2018-10-05] MEDS: Metolazone TAB* 5 MG PO SCH (09:08)
[2018-10-05] MEDS: Aspirin 81 mg CHEW TAB* 81 MG TAB.CHEW PO SCH (09:08)
[2018-10-05] MEDS: Famotidine TAB* 20 MG PO SCH ×2 (09:08→21:37)
[2018-10-05] MEDS: Furosemide IV* 10 MG/ML VIAL (40 MG) IV SCH ×2 (09:31→21:37)
[2018-10-05] MEDS ORDERED: Magnesium Sulfate 2 GM IV* 2 GM/50 ML BAG IVPB ONE (09:36)
[2018-10-05 10:56] LABS: Indirect Bilirubin 3.4 mg/dL (0.3-1.0); Total Bilirubin 3.9 mg/dL (0.2-1.0)
[2018-10-05] MEDS ORDERED: Ondansetron INJ* 2 MG/ML VIAL IV PRN (11:33)
[2018-10-05] MEDS: PRAVASTATIN 40 MG PO SCH (17:58)
--- NOTE | 2018-10-05 18:21 | PN ---
Subjective Date of Service: 10/05/18 Interval History: Pt seen and examined. Meds and labs reviewed. CC: Pt mentions now able to lie down in bed without feeling like hes drowning, i.e., improved orthopnea ROS: Denied NESS/dizziness, F/C, N/V, CP, SOB, increased cough, sputum production , abd pain, diarrhea, constipation, dysuria, myalgias, arthralgias, throat pain , and new skin lesions. The rest of the 14 point ROS are unremarkable. PHYSICAL EXAM: GEN APPEARANCE: Awake, not in acute distress HEENT: NC/AT, PERRLA, moist oral mucosa, (-) throat erythema NECK: Soft, supple, (-) cervical LAD, (+)JVD improved HEART: S1S2 WNL, RRR, No MRG CHEST: CTA, BL, GAE, No W/R/R ABD: Soft, ND/NT, NABS 4x Q EXT: No C/C/E SKIN: Warm to touch PSYCH: No active psychosis, hallucinations, depression, SI/HI Objective Active Medications: Aspirin (Aspirin 81 Mg Chew Tab*) 81 mg PO DAILY [facility] Last Admin: 10/05/18 09:08 Dose: 81 mg Famotidine (Pepcid Tab*) 20 mg PO BID [facility] Last Admin: 10/05/18 09:08 Dose: 20 mg Furosemide (Lasix Iv*) 40 mg IV BID [facility] Last Admin: 10/05/18 09:31 Dose: 40 mg Heparin Sodium (Porcine) (Heparin Vial(*)) 5,000 units SUBCUT Q8HR [facility] Last Admin: 10/05/18 14:29 Dose: 5,000 units Metolazone (Zaroxolyn Tab*) 5 mg PO DAILY [facility] Stop: 10/08/18 17:59 Last Admin: 10/05/18 09:08 Dose: 5 mg Ondansetron HCl (Zofran Inj*) 4 mg IV Q6H PRN PRN Reason: NAUSEA Last Admin: 10/05/18 11:46 Dose: 4 mg Pravastatin Sodium (Pravachol (Nf)) 40 mg PO 1700 [facility] Last Admin: 10/05/18 17:58 Dose: 40 mg Zolpidem Tartrate (Ambien Tab*) 10 mg PO BEDTIME PRN PRN Reason: INSOMNIA Last Admin: 10/04/18 21:43 Dose: 10 mg Vital Signs - 8 hr 10/05/18 10/05/18 10/05/18 10:22 11:47 15:24 Temperature 97.1 F 98.8 F Pulse Rate 102 49 82 Respiratory 16 16 Rate Blood Pressure 145/98 141/86 137/84 (mmHg) O2 Sat by Pulse 97 97 Oximetry Oxygen Devices in Use Now: None Result Diagrams: 10/05/18 05:28 10/05/18 05:28 Additional Lab and Data: Lab Results 10/03/18 10/03/18 10/03/18 Range/Units 17:04 17:04 17:04 WBC 8.6 (3.5-10.8) 10^3/ul RBC 5.46 H (4.00-5.40) 10^6/ul Hgb 15.9 (14.0-18.0) g/dl Hct 47 (42-52) % MCV 87 (80-94) fL MCH 29 (27-31) pg MCHC 34 (31-36) g/dl RDW 15 (10.5-15) % Plt Count 151 (150-450) 10^3/ul MPV 9.0 (7.4-10.4) fL Neut % (Auto) 68.0 % Lymph % (Auto) 18.1 % [place] % (Auto) 9.4 % Eos % (Auto) 3.5 % Baso % (Auto) 1.0 % Absolute Neuts (auto) 5.8 (1.5-7.7) 10^3/ul Absolute Lymphs (auto) 1.6 (1.0-4.8) 10^3/ul Absolute Monos (auto) 0.8 (0-0.8) 10^3/ul Absolute Eos (auto) 0.3 (0-0.6) 10^3/ul Absolute Basos (auto) 0.1 (0-0.2) 10^3/ul Absolute Nucleated RBC 0 10^3/ul Nucleated RBC % 0 INR (Anticoag Therapy) 1.20 H (0.77-1.02) Sodium 137 (135-145) mmol/L Potassium 4.2 (3.5-5.0) mmol/L Chloride 108 (101-111) mmol/L Carbon Dioxide 19 L (22-32) mmol/L Anion Gap 10 (2-11) mmol/L BUN 28 H (6-24) mg/dL Creatinine 1.31 H (0.67-1.17) mg/dL Est GFR ( Amer) 66.0 (>60) Est GFR (Non-Af Amer) 54.6 (>60) BUN/Creatinine Ratio 21.4 H (8-20) Glucose 140 H (70-100) mg/dL Lactic Acid (0.5-2.0) mmol/L Calcium 9.3 (8.6-10.3) mg/dL Total Bilirubin 2.50 H (0.2-1.0) mg/dL AST 28 (13-39) U/L ALT 26 (7-52) U/L Alkaline Phosphatase 127 H (34-104) U/L Troponin I 0.02 (<0.04) ng/mL B-Natriuretic Peptide (<=100) pg/mL Total Protein 6.2 L (6.4-8.9) g/dL Albumin 4.2 (3.2-5.2) g/dL Globulin 2.0 (2-4) g/dL Albumin/Globulin Ratio 2.1 (1-3) TSH Pending 10/03/18 10/03/18 Range/Units 17:04 17:04 WBC (3.5-10.8) 10^3/ul RBC (4.00-5.40) 10^6/ul Hgb (14.0-18.0) g/dl Hct (42-52) % MCV (80-94) fL MCH (27-31) pg MCHC (31-36) g/dl RDW (10.5-15) % Plt Count (150-450) 10^3/ul MPV (7.4-10.4) fL Neut % (Auto) % Lymph % (Auto) % [place] % (Auto) % Eos % (Auto) % Baso % (Auto) % Absolute Neuts (auto) (1.5-7.7) 10^3/ul Absolute Lymphs (auto) (1.0-4.8) 10^3/ul Absolute Monos (auto) (0-0.8) 10^3/ul Absolute Eos (auto) (0-0.6) 10^3/ul Absolute Basos (auto) (0-0.2) 10^3/ul Absolute Nucleated RBC 10^3/ul Nucleated RBC % INR (Anticoag Therapy) (0.77-1.02) Sodium (135-145) mmol/L Potassium (3.5-5.0) mmol/L Chloride (101-111) mmol/L Carbon Dioxide (22-32) mmol/L Anion Gap (2-11) mmol/L BUN (6-24) mg/dL Creatinine (0.67-1.17) mg/dL Est GFR ( Amer) (>60) Est GFR (Non-Af Amer) (>60) BUN/Creatinine Ratio (8-20) Glucose (70-100) mg/dL Lactic Acid 0.9 (0.5-2.0) mmol/L Calcium (8.6-10.3) mg/dL Total Bilirubin (0.2-1.0) mg/dL AST (13-39) U/L ALT (7-52) U/L Alkaline Phosphatase (34-104) U/L Troponin I (<0.04) ng/mL B-Natriuretic Peptide 1312 H (<=100) pg/mL Total Protein (6.4-8.9) g/dL Albumin (3.2-5.2) g/dL Globulin (2-4) g/dL Albumin/Globulin Ratio (1-3) TSH Assess/Plan/Problems-Billing Assessment: - Patient Problems (1) CHF exacerbation Current Visit: Yes Status: Acute Code(s): I50.9 - HEART FAILURE, UNSPECIFIED SNOMED Code(s): 61504295 Comment: -Diastolic -Per 2D echo (09/12/18): EF =25-30%; restrictive diastolic filling pattern -Defer w/Transfer Station Attendant at [place] to determine if pt candidate for PM given low EF -Consider touching base w/ [facility] Cards vs. Card consult to establish care if pt gets readmitted if there is difficulty contacting [facility] Cards?? -Will increase Lasix to 40 mg IV BID -Will add low dose Metolazone for synergy -Continue Low sodium diet -Repeat BNP in AM (2) Trigeminy Current Visit: Yes Status: Acute Code(s): R00.8 - OTHER ABNORMALITIES OF HEART BEAT SNOMED Code(s): 42086409 Comment: #PACs w/abberancy vs. Trigeminy: -Now with occasional bigeminies -Pt mentions he is being followed by cardiology [place] and was recently assessed and was told he was fine -Mentions he has known regular irregularity of heart rhythm -At this time, we will continue to observe given pt is otherwise hemodynamically stable without any complaints of CP and had similar trigemini pattern back in August---Consider touching base with [place] Cardiology team in AM and/or consult our Cardiology service for future care and discuss plan for low EF if will need PM. -Will D/C Eliquis at this time given rhythm is neither A. flutter nor A. fib (3) CKD (chronic kidney disease) Current Visit: Yes Status: Acute Code(s): N18.9 - CHRONIC KIDNEY DISEASE, UNSPECIFIED SNOMED Code(s): 973543766 Comment: -Possibly with mild acute insufficiency due to CHF exacerbation given only mildly elevated in comparison to recent baseline -Continue watchful waiting (4) CAD (coronary artery disease) Current Visit: Yes Status: Acute Code(s): I25.10 - ATHSCL HEART DISEASE OF [place] CORONARY ARTERY W/O ANG PCTRS SNOMED Code(s): 53036918 Comment: #CAD S/P CABG: -Continue ASA and statin -Pt not on beta jaspal given allergic to them; unclear why pt not on ACEI given low EF -Will hold off on ACEI given recent increase in diuretic regimen -Consider starting ACEI if no contraindication prior to D/C consider touching base with pts planisher vs consult our department if with difficulty contacting [facility] cards (5) DVT prophylaxis Current Visit: Yes Status: Acute Code(s): CNW5912 - SNOMED Code(s): 994460096 Comment: -Continue Heparin SQq8H Status and Disposition: -Appreciate PT input
[2018-10-05] MEDS: Zolpidem TAB* 10 MG PO PRN (21:37)
[2018-10-06] MEDS: Heparin VIAL(*) 5000 UNITS/ML VIAL (FIVE THOUSAND) SUBCUT SCH ×3 (05:11→21:14)
[2018-10-06 06:39] LABS: Hematocrit 50 % (42-52); Hemoglobin 17.2 g/dl (14.0-18.0); Mean Corpuscular HGB Conc 34 g/dl (31-36); Mean Corpuscular Hemoglobin 30 pg (27-31); Mean Corpuscular Volume 86 fL (80-94); Mean Platelet Volume 8.8 fL (7.4-10.4); Platelet Count 202 10^3/ul (150-450); Red Blood Count 5.83 10^6/ul (4.00-5.40); Red Cell Distribution Width 15 % (10.5-15); White Blood Count 8.8 10^3/ul (3.5-10.8)
[2018-10-06 07:01] LABS: Albumin 4.3 g/dL (3.2-5.2); Albumin/Globulin Ratio 1.6 (1-3); BUN/Creatinine Ratio 18.1 (8-20); Calcium 9.9 mg/dL (8.6-10.3); EGFR Non-African American 43.3 (>60); Globulin 2.7 g/dL (2-4); Magnesium 2.2 mg/dL (1.9-2.7)
[2018-10-06] MEDS: Famotidine TAB* 20 MG PO SCH ×2 (09:33→21:14)
[2018-10-06] MEDS: Aspirin 81 mg CHEW TAB* 81 MG TAB.CHEW PO SCH (09:33)
[2018-10-06 09:57] LABS: Hepatitis C Antibody Nonreactive (Nonreactive)
[2018-10-06 13:24] LABS: Hepatitis B Surface Antigen Nonreactive (Nonreactive)
--- NOTE | 2018-10-06 15:33 | ECHO ---
Patient: NELL BANDA [facility] Rec#: [id number] : 1950 Date: 10/06/2018 Age: 68y Height: 191 cm / 75.2 in Weight: 96 kg / 211.6 lbs Sex: M BSA: 2.25 Room#: [facility] [place] Admit Date#: 10/04/2018 Type: Inpatient Referring: Guanakito Dow Reading: Channing Loza MD [employer] As[employer]er: Urvashi Boland RDCS,RDMS CC: Roby Blas MD Transthoracic Echocardiogram Indication: CHF BP: 118/64 HR: 91 Rhythm: NSR with PVCs Findings History: HLD, HTN, CHF, CABG, AOV replacement, cardiomyopathy Technical Comments: The study quality is fair. Left Ventricle: The left ventricular size is mild to moderately dilated. Mild to moderate concentric left ventricular hypertrophy is observed. There is global hypokinesis of the left ventricle with minor regional variation. There is severely decreased left ventricular systolic function. The estimated ejection fraction is 20-25%. The left ventricular diastolic filling pattern is restrictive. The mid anterior, mid inferolateral, apical anterior, and apical lateral wall segments are hypokinetic (score 2). The basal inferior, mid inferior, and apical inferior wall segments are akinetic (score 3). Overall wallmotion score index is 2.43 Left Atrium: The left atrium is moderate to severely dilated. Right Ventricle: The right ventricle is mildly dilated. The right ventricular global systolic function is moderately reduced. Right Atrium: The right atrium is moderate to severely dilated. Aortic Valve: There is mild aortic regurgitation. The mean gradient of the aortic valve is 17 mmHg. The aortic valve area, by VTI's, is calculated at 1.5 cm2. A bio-prosthetic aortic valve is present. Mitral Valve: There is mitral annular calcification. The mitral valve leaflets are mildly thickened. There is a trace of mitral regurgitation. There is no evidence of mitral stenosis. Tricuspid Valve: The tricuspid valve leaflets are normal. There is trace tricuspid regurgitation. Unable to estimate the right ventricular systolic pressure. Pulmonic Valve: There is no evidence of pulmonic valve thickening. There is a trace pulmonic regurgitation. Pericardium: There is no significant pericardial effusion. Aorta: The ascending aorta is not well visualized. There is no dilatation of the aortic arch. There is mild dilatation of the aortic root. Pulmonary Artery: The main pulmonary artery is not well visualized. Venous: The inferior vena cava appears normal in size. There is less than 50% respiratory change in the inferior vena cava dimension. Summary: There are no significant changes when compared to the previous study done on 09/12/18 Conclusions Mild to moderate concentric left ventricular hypertrophy is observed. There is global hypokinesis of the left ventricle with minor regional variation. There is severely decreased left ventricular systolic function. The estimated ejection fraction is 20-25%. The mid anterior, mid inferolateral, apical anterior, and apical lateral wall segments are hypokinetic (score 2). The basal inferior, mid inferior, and apical inferior wall segments are akinetic (score 3). The right ventricular global systolic function is moderately reduced. A bio-prosthetic aortic valve is present. Normal function There is a trace of mitral regurgitation. There is trace tricuspid regurgitation. Unable to estimate the right ventricular systolic pressure. There is no significant pericardial effusion. Measurements Name Value Normal Range RVIDd (AP) 2D 3.7 cm (0.9 - 2.6) RVDdMajor (2D) 2.7 cm (2.2 - 4.4) RAd ISD 4CH 6.4 cm (3.4 - 4.9) RA (A4C)W 5.4 cm (2.9 - 4.6) IVSd (2D) 1.4 cm (0.6 - 1) LVPWd (2D) 1.4 cm (0.6 - 1) LVIDd (2D) 5.9 cm (3.6 - 5.4) LVIDs (2D) 5.1 cm - LV FS (2D) 28 % (25 - 45) Aortic Annulus 2 cm (1.4 - 2.6) Ao root diameter (2D) 3.6 cm (2.1 - 3.5) Aortic arch 3.1 cm (1.8 - 3.4) LA dimension (AP) 2D 4.5 cm (2.3 - 3.8) Name Value Normal Range LA ESV BP (A/L) index 47 ml/m2 - Name Value Normal Range MV E-wave Vmax 0.8 m/sec - MV deceleration time 129 msec - MV A-wave Vmax 0.4 m/sec - MV E:A ratio 2.2 ratio - LV septal e' Vmax 0.03 m/sec - LV E:e' septal ratio 33 ratio - Name Value Normal Range AV Vmax 2.7 m/sec - AV VTI 52 cm - AV peak gradient 29 mmHg - AV mean gradient 17 mmHg - LVOT diameter 2 cm - LVOT Vmax 1.4 m/sec - LVOT VTI 25 cm - LVOT peak gradient 8 mmHg - LVOT mean gradient 4 mmHg - DOI (VTI) 0.5 ratio - STEVENSON (continuity Vmax) 1.6 cm2 - STEVENSON (continuity VTI) 1.5 cm2 - AR PHT 454 msec - HEATHER Vmax 0.7 m/sec - Name Value Normal Range RAP 8 mmHg - IVC diameter 2.1 cm - Name Value Normal Range PV Vmax 0.5 m/sec - PV peak gradient 1 mmHg - Wallmotion BAS Not Seen BA Not Seen BAL Not Seen JOHN Not Seen BI Akinetic BIS Not Seen MAS Not Seen MA Hypokinetic MAL Not Seen MIL Hypokinetic OK Akinetic MIS Not Seen Not Seen AA Hypokinetic AL Hypokinetic AI Akinetic APEX Hypokinetic
[2018-10-06] MEDS: PRAVASTATIN 40 MG PO SCH (16:48)
--- NOTE | 2018-10-06 19:54 | PN ---
Subjective Date of Service: 10/06/18 Interval History: Denies chest pain. Attests to "psychosomatic" fear of laying down given his 2-3 weeks of orthopnea and insomnia. Slept 12hr with Ambien night before last, then 5hr in day yesterday, last night more restless. Never was able to follow with PCP Dr. Blas after 09/08 ED visit. States [place] transportation won't take him up to [place] (to see his road builder) give his CHF symptoms. Takes bus then walks last mile to see [place]. Breaks down distraught at one point. 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 Net negative 1L, weight down. Got Hepatitis B immunization many years after he was told he had Hepatitis B antibodies present. Tbili 4.0 Objective Active Medications: Aspirin (Aspirin 81 Mg Chew Tab*) 81 mg PO DAILY [facility] Last Admin: 10/06/18 09:33 Dose: 81 mg Carvedilol (Coreg Tab*) 3.125 mg PO BID [facility] Famotidine (Pepcid Tab*) 20 mg PO BID [facility] Last Admin: 10/06/18 09:33 Dose: 20 mg Heparin Sodium (Porcine) (Heparin Vial(*)) 5,000 units SUBCUT Q8HR [facility] Last Admin: 10/06/18 13:58 Dose: 5,000 units Losartan Potassium (Cozaar Tab*) 25 mg PO DAILY [facility] Ondansetron HCl (Zofran Inj*) 4 mg IV Q6H PRN PRN Reason: NAUSEA Last Admin: 10/05/18 11:46 Dose: 4 mg Pravastatin Sodium (Pravachol (Nf)) 40 mg PO 1700 [facility] Last Admin: 10/06/18 16:48 Dose: 40 mg Zolpidem Tartrate (Ambien Tab*) 10 mg PO BEDTIME PRN PRN Reason: INSOMNIA Last Admin: 10/05/18 21:37 Dose: 10 mg Vital Signs - 8 hr 10/06/18 15:31 Temperature 98.0 F Pulse Rate 74 Respiratory 16 Rate Blood Pressure 130/54 (mmHg) O2 Sat by Pulse 97 Oximetry Oxygen Devices in Use Now: None Appearance: NAD Eyes: No Scleral Icterus Ears/Nose/Mouth/Throat: NL Teeth, Lips, Gums Respiratory: Symmetrical Chest Expansion and Respiratory Effort, Clear to Auscultation Cardiovascular: NL Sounds; No Murmurs; No JVD, RRR Abdominal: NL Sounds; No Tenderness; No Distention, No Hepatosplenomegaly Extremities: - - trace edema Skin: No Rash or Ulcers Neurological: Alert and Oriented x 3 Nutrition: Taking PO's Result Diagrams: 10/06/18 06:01 10/06/18 06:01 Additional Lab and Data: Laboratory Results - last 24 hr 10/04/18 10/05/18 10/06/18 05:28 14:20 06:01 WBC 8.8 RBC 5.83 H Hgb 17.2 Hct 50 MCV 86 MCH 30 MCHC 34 RDW 15 Plt Count 202 MPV 8.8 Sodium Potassium Chloride Carbon Dioxide Anion Gap BUN Creatinine Est GFR ( Amer) Est GFR (Non-Af Amer) BUN/Creatinine Ratio Glucose Calcium Phosphorus Magnesium Total Bilirubin AST ALT Alkaline Phosphatase Total Protein Albumin Globulin Albumin/Globulin Ratio Hepatitis A IgM Ab Nonreactive Hep Bs Antigen Nonreactive Hep B Core IgM Ab Nonreactive Hepatitis C Antibody Nonreactive Hepatitis C Ab Index < 0.0 10/06/18 06:01 WBC RBC Hgb Hct MCV MCH MCHC RDW Plt Count MPV Sodium 139 Potassium 4.0 Chloride 96 L Carbon Dioxide 34 H Anion Gap 9 BUN 29 H Creatinine 1.60 H Est GFR ( Amer) 52.4 Est GFR (Non-Af Amer) 43.3 BUN/Creatinine Ratio 18.1 Glucose 143 H Calcium 9.9 Phosphorus 5.0 Magnesium 2.2 Total Bilirubin 4.00 H AST 20 ALT 19 Alkaline Phosphatase 138 H Total Protein 7.0 Albumin 4.3 Globulin 2.7 Albumin/Globulin Ratio 1.6 Hepatitis A IgM Ab Hep Bs Antigen Hep B Core IgM Ab Hepatitis C Antibody Hepatitis C Ab Index Assess/Plan/Problems-Billing Assessment: 68 yo male PMH CAD, severe anxiety, TIA, HTN, IBS, gout, recent ECHO in ED 09/12 EF 25-30% presenting with SOB, orthopnea, acute CHF exacerbation. - Patient Problems (1) CHF exacerbation Current Visit: Yes Status: Acute Code(s): I50.9 - HEART FAILURE, UNSPECIFIED SNOMED Code(s): 64055569 Comment: -Combined severe Systolic and Diastolic dysfunction. He reports normal cardiac workup in Jun 2018 - ECHO 09/12/18: EF =25-30% - ECHO 10/06/18 EF= 20-25% -Appreciate Cardiology consult with Dr. Loza. Pursuing records, will likely need a LHC (if so would probably would need transfer to [place] given his financial/ insurance constraints. -Consider touching base w/ [facility] Cards vs. Card consult to establish care if pt gets -given bump in ELECTR[employer] METER REPAIRER APPRENTICE and relative euvolvemia, reduce lasix back down to 20mg po daily. -Low sodium diet -adding BB, adding ACEI/ARB, eventually spironolactone (2) Anxiety Current Visit: Yes Status: Acute Code(s): F41.9 - ANXIETY DISORDER, UNSPECIFIED SNOMED Code(s): 11233880 (3) CAD (coronary artery disease) Current Visit: Yes Status: Acute Code(s): I25.10 - ATHSCL HEART DISEASE OF [place] CORONARY ARTERY W/O ANG PCTRS SNOMED Code(s): 44881934 Comment: #CAD S/P CABG: -Continue ASA and statin -BB starting - likely will need LHC (4) CKD (chronic kidney disease) Current Visit: Yes Status: Acute Code(s): N18.9 - CHRONIC KIDNEY DISEASE, UNSPECIFIED SNOMED Code(s): 981793533 Comment: -reduce diuretic given [employer] bump on the lasix 40mg IV BID + metolazone. (5) DVT prophylaxis Current Visit: Yes Status: Acute Code(s): [id number] - SNOMED Code(s): 001611786 Comment: -Continue Heparin SQq8H (6) Trigeminy Current Visit: Yes Status: Acute Code(s): R00.8 - OTHER ABNORMALITIES OF HEART BEAT SNOMED Code(s): 24732170 Comment: #PACs w/abberancy vs. Trigeminy - appreciate cardiolgoy recs. - likely LHC - get records. Status and Disposition: medicine inpatient.
--- NOTE | 2018-10-06 20:45 | CONS ---
CC: Dr. Roby Blas * CARDIOLOGY CONSULTATION: DATE OF CONSULT: 10/06/18 INDICATION FOR CONSULTATION: Congestive heart failure, coronary artery disease. HISTORY OF PRESENT ILLNESS: The patient is a 68-year-old gentleman with a history of coronary artery disease, history of coronary artery bypass surgery and aortic valve replacement 6 years ago in [place]. The patient came to the hospital because of congestive heart failure symptoms that have been going on for couple of weeks. The patient was admitted to [facility] back at the middle of August with congestive heart failure. At that time, he was started on Lasix and discharged home. He was asked to follow up with Dr. Blas at the [facility] , which did not happen. Again, the patient came in with congestive heart failure. His BNP was 1312. His troponins were unremarkable. The patient's creatinine was elevated at 1.3. The patient was started on Lasix with significant improvement in his symptoms. The patient had an echocardiogram today, which showed severe LV dysfunction, ejection fraction of 25% with inferior wall hypokinesis, global hypokinesis. The patient's aortic valve replacement is functioning normally. Compared to his echocardiogram back in August, there is no significant change. The patient reportedly had significant evaluation of his cardiac status up in [facility] in June. We are going to try to get those records. The patient has been having symptoms of bronchitis for approximately a month and a half and he states over the last week or so, his bronchitis symptoms have started to slowly resolve, however, the patient has been having significant orthopnea and significant lower extremity edema consistent with his congestive heart failure. PAST MEDICAL HISTORY: Significant for coronary artery disease as described above, aortic valve replacement, recent bronchitis, glaucoma, hyperlipidemia. PAST SURGICAL HISTORY: Aortic valve replacement and two-vessel bypass 6 years ago in [place], [place], history of eye surgery, and history of lipoma removal. MEDICATIONS: The patient's home medications appeared to be: 1. Pravastatin 10 mg a day. 2. Aspirin 325 mg a day. 3. Lasix 20 mg a day. 4. Since he has been admitted to the hospital, the patient has been on higher dose of Lasix with the addition of metolazone, and no other new medications have been started. ALLERGIES: AMLODIPINE, BETA BLOCKERS. Unclear what his BETA PERRI allergies are. FAMILY HISTORY: The patient's father had a history of coronary artery disease at an "older age." There is a history of diabetes in his family. SOCIAL HISTORY: The patient denies tobacco or alcohol use. He does use marijuana regularly. He does not have any close friends or relatives. He lives on his own. REVIEW OF SYSTEMS: Negative for fevers or chills. Negative for changes in bowel or bladder habits. Positive for weight gain. Positive for poor dentition. Other 12-point review is unremarkable. PHYSICAL EXAM: Height is 6 feet 3 inches, weight 212 pounds, temperature 98, heart rate 74, blood pressure 130/54, respiratory rate is 16, oxygen saturation 97% on room air. Sclerae anicteric. Oropharynx is pink without erythema. Carotids are 2+ without bruits. JVD is normal. Thyroid is normal. Oral dentition is quite poor with multiple teeth missing. Cardiac Exam: S1, S2 with a slight 1/6 systolic ejection murmur and no diastolic murmur. PMI is normal. Lungs have minimal rhonchi on the right base. There are no rales on exam. There is no dullness or percussion. Abdomen is soft, nontender, nondistended with normoactive bowel sounds. Extremities show no edema. He has 2+ pulses throughout. The patient is awake, alert, and oriented. DIAGNOSTIC STUDIES/LAB DATA: CBC within normal limits. Chemistries within normal limits. BUN 29 and creatinine 1.6, which is slightly higher than his admission creatinine. AST and ALT are normal. TSH 1.62 and normal. EKG shows sinus tachycardia with frequent PACs, poor R wave progression. Echocardiogram today as I described above. IMPRESSION: This 68-year-old gentleman with a history of coronary artery disease, history of aortic valve replacement, was admitted to the hospital with congestive heart failure. His echocardiogram shows severe LV dysfunction of unclear origin or duration. Again, the patient had an echocardiogram back in the middle of August, which showed the same LV dysfunction. The patient was discharged on Lasix at that time. No other medication changes were done at that time. The patient did have a full cardiac evaluation up in [place] in June, however, he is not aware of those results. PLAN/RECOMMENDATIONS: For now, my recommendation is to increase his medical therapy. The patient will be started on Coreg 3.125 mg b.i.d. The patient is unclear as to what his "BETA-PERRI allergy is," so I will try low-dose Coreg. The patient was started on low-dose Cozaar for his congestive heart failure. The patient appears to be euvolemic. His Lasix will be stopped. I will try to get in touch [facility] [place] to see if his old record show in echocardiogram back in June. Ultimately, I think the patient needs a cardiac catheterization. The question is whether that is done here or needs to be transferred up to [place] to have that done because of financial issues. Further recommendation is pending discussion with Dr. Blas. [id number]/[facility] #: [id number] MTDD
[2018-10-06] MEDS: Carvedilol TAB* 3.125 MG PO SCH (21:14)
[2018-10-06] MEDS: Zolpidem TAB* 10 MG PO PRN (21:58)
[2018-10-07] MEDS: Heparin VIAL(*) 5000 UNITS/ML VIAL (FIVE THOUSAND) SUBCUT SCH ×2 (05:39→13:51)
[2018-10-07] MEDS: Carvedilol TAB* 3.125 MG PO SCH (08:22)
[2018-10-07] MEDS: Famotidine TAB* 20 MG PO SCH (08:22)
[2018-10-07] MEDS: Aspirin 81 mg CHEW TAB* 81 MG TAB.CHEW PO SCH (08:22)
[2018-10-07] MEDS ORDERED: Losartan TAB* 25 MG PO SCH (09:00)
[2018-10-07] MEDS ORDERED: Furosemide TAB* 40 MG PO SCH (09:00)
[2018-10-07 13:10] VITALS: BP 125/78
--- NOTE | 2018-10-07 19:09 | DS ---
CC: Dr. Roby Blas; Dr. Loza * DISCHARGE SUMMARY: DATE OF ADMISSION: 10/03/18 DATE OF DISCHARGE: 10/07/18 PRIMARY CARE PROVIDER: Dr. Roby Blas from [place]. BAR PILOT: Dr. Loza. DISCHARGE DIAGNOSES: 1. Acute systolic congestive heart failure. 2. Newly diagnosed cardiomyopathy with EF of 25%. 3. Mild worsening of chronic kidney disease. SECONDARY DIAGNOSES: 1. History of status post aortic valve replacement 6 years prior. 2. History of coronary artery bypass grafting with 2-vessel bypass. 3. Hyperlipidemia. 4. Hypertension. 5. Ocular migraines. 6. Glaucoma. 7. Coronary artery disease. MEDICATIONS AT DISCHARGE: Include: 1. Cozaar 25 mg daily. 2. Lasix 10 mg daily. 3. Coreg 3.125 mg b.i.d. 4. Pravachol 10 mg daily. 5. Aspirin 325 mg daily. LABORATORY DATA AND STUDIES PERFORMED DURING THE HOSPITAL STAY: Included on 04/17, sodium of 136, potassium of 4.0, chloride of 96, carbon dioxide 34, BUN 29, creatinine 1.6. Liver function tests showed total bilirubin of 4.0, direct bilirubin of 0.5, indirect bilirubin of 3.4, alkaline phosphatase of 138. Troponin ranged from 0.01 to 0.02. TSH was noted to be 1.62 at admission. CBC last obtained on 10/06/18 showed white blood cell count of 8.8, hemoglobin of 17.2, hematocrit of 50, and platelets of 202. Transthoracic echocardiogram obtained on 10/06/18, showed [id number] concentric LVH with global hypokinesis of the left ventricle with minor regional variation with EF of 20% to 25%. Mid anterior, inferolateral, apical anterior and apical lateral wall segments are hypokinetic. The basal inferior, inferior, apical inferior segments are akinetic. The right ventricular global systolic function is moderately reduced. Bioprosthetic aortic valve was present with normal function. There was trace mitral regurgitation, trace tricuspid regurgitation, and no significant pericardial effusion. Gallbladder ultrasound obtained on 10/05/18, impression: "Starry chepe appearance of the liver, relative increased echogenicity surrounding the biliary ducts and portal veins. It is a nonspecific appearance that can be associated with hepatitis. Otherwise, ultrasound is normal." The patient's hepatitis C antibody, B core IgM, B surface antigen and hepatitis A IgM antibodies, all of them were nonreactive. HOSPITALIZATION COURSE: Bijan Gayle is a 68-year-old male, who had noted problems with shortness of breath for about a month now. He stated that originally he had a cold and he had so much coughing to the point of "choking." He presented to the ED for evaluation on 09/12/18. At that point, he was noted to be in mild CHF. His echocardiogram at that point noted to have an EF of 25%. He was advised to follow up with Dr. Blas from [facility] and started on Lasix. Apparently, the patient was unable to follow up with his primary care provider prior to the holiday time. Instead, he came into the emergency department for reevaluation on 10/04/18 complaining of severe orthopnea. The patient was diuresed with several doses of Lasix with good results. At the time of discharge, the patient has no more lower extremity edema present. He was no longer hypoxic or orthopneic. Due to his EF noted to be 25%, Dr. Loza saw the patient in consultation from Cardiology. It was noted that in April of 2017, the patient's EF was 45%. The patient was offered cardiac catheterization for further evaluation of his cardiac vasculature, but he declined. He is afraid that there is going to be too much of a financial responsibility due to the patient belonging to the [employer] system. The patient prefers to follow up with Dr. Blas from the [facility] and recommendations from the Cardiology at the [facility]. At this point, the patient was euvolemic by the time of discharge and he is going to be discharged home with once again recommendation to follow up with his primary care provider in approximately 4 to 7 days. The patient was noted to have indirect bilirubin level of 3.4 and total bilirubin in the range of 4. That was consistent with prior reports in August. He had a slight elevation of bilirubin in 2014 at 1.7. He had acute hepatitis panel that was negative and liver ultrasound that showed as above mentioned increased echogenicity. I suspect the patient has Gilbert syndrome, but that may need to be further evaluated and compared with prior laboratory values at the [facility]. He had no complaints of abdominal pain during his hospital stay. The patient has history of chronic kidney disease with creatinine in the range of 1.3. His creatinine slightly increased during his hospital stay due to diuretics. The IV Lasix was stopped and the patient's creatinine day prior to discharge was 1.6. At this point, the patient is recommended to take very small dose of Lasix at 10 mg daily. The patient was also started on losartan at 25 mg daily that could increase his creatinine somewhat. Despite his "allergy" to BETA-BLOCKERS, the patient did not remember what response he has to beta-blockers. He was cautiously started by Dr. Loza on Coreg at a small dose with good results. He is to continue Coreg at 3.125 mg p.o. b.i.d. Once again, the patient declined cardiac catheterization at our facility and he is recommended to follow up with the [facility] for further cardiac evaluation. PHYSICAL EXAMINATION: At the time of discharge, blood pressure of 125/78, heart rate of 95 and regular, respiratory rate 16, oxygen saturation 99% on room air, temperature 97.7. General: The patient is a pleasant 68-year-old male, who is in no acute distress. Alert, awake, and oriented x3. HEENT: Head : Atraumatic, normocephalic. Eyes: Pupils are equal, reactive to light and accommodation. Oropharynx is clear. Mucosa moist. Neck: Supple. No JVD. No bruits bilaterally. Cardiovascular: Regular rate and rhythm. No murmur. Respiratory: Clear to auscultation bilaterally. Abdomen: Soft, nontender. Bowel sounds are present in all 4 quadrants. Extremities: There is no edema. Pulses are +2 bilaterally. There is no clubbing or cyanosis. On neuro evaluation, speech is clear. Cranial nerves II through XII grossly intact. Motor strength is 5/5 bilaterally. Psychiatric Evaluation: Oriented x3 with no evidence of anxiety or depression. Please note that this is a short summary of the patient's hospital stay. Please refer to further medical records for details. TIME SPENT: Approximately 35 minutes was spent on the patient's discharge. [id number]/[facility] #: [id number] [facility]y
== END 2018-10-07 13:09 | disposition home or self-care (01) | DRG 291 ==
LOC: ED 16:53 → MEDTELE 21:45 → OBSVTOIN 10-04 15:47
PROVIDERS: ADMIT Internal Medicine; ATTEND Internal Medicine
DX: I13.0 Hypertensive heart and chronic kidney disease with heart failure and stage 1 through stage 4 chronic kidney disease, or unspecified chronic kidney disease (principal); I50.23 Acute on chronic systolic (congestive) heart failure; I47.1 Supraventricular tachycardia; N18.3 Chronic kidney disease, stage 3 (moderate); K76.0 Fatty (change of) liver, not elsewhere classified; E78.5 Hyperlipidemia, unspecified; G43.809 Other migraine, not intractable, without status migrainosus; H40.9 Unspecified glaucoma; I25.10 Atherosclerotic heart disease of native coronary artery without angina pectoris; F41.9 Anxiety disorder, unspecified; M10.9 Gout, unspecified; K57.90 Diverticulosis of intestine, part unspecified, without perforation or abscess without bleeding; K58.0 Irritable bowel syndrome with diarrhea; I44.7 Left bundle-branch block, unspecified; F12.90 Cannabis use, unspecified, uncomplicated; Z95.2 Presence of prosthetic heart valve; Z95.1 Presence of aortocoronary bypass graft; Z86.73 Personal history of transient ischemic attack (TIA), and cerebral infarction without residual deficits; Z79.82 Long term (current) use of aspirin; Z79.899 Other long term (current) drug therapy; Z88.1 Allergy status to other antibiotic agents; Z88.5 Allergy status to narcotic agent; Z88.8 Allergy status to other drugs, medicaments and biological substances; Z82.49 Family history of ischemic heart disease and other diseases of the circulatory system; Z80.3 Family history of malignant neoplasm of breast; Z80.49 Family history of malignant neoplasm of other genital organs; G47.00 Insomnia, unspecified; R00.8 Other abnormalities of heart beat
CPT/HCPCS: 36415; 71046; 76705; 80053; 82247; 82248; 83605; 83735; 83880; 84100; 84443; 84484; 85025; 85027; 85610; 86705; 86709; 86803; 87340; 93005; 93306; 99283; A9270-GY; J1644; J1940; J2405; J3475